=== PATIENT | female | born 1990 | race Asian ===

== ENCOUNTER 2020-04-27 05:23 | Inpatient (IN) ==
[2020-04-27] MEDS ORDERED: INFLUENZA VIRUS QUAD VACCINE 0.5 ML SYR IM ONE (06:07)
[2020-04-27] MEDS ORDERED: INFLUENZA ADMINISTRATION CHARGE ONE (06:07)
[2020-04-27] MEDS ORDERED: OXYTOCIN 30 UNITS/500 ML BAG IV PRN ×3 (06:31→19:06)
[2020-04-27] MEDS ORDERED: PENICILLIN G POTASSIUM 6 MU in DEXTROSE 5% 250 ML IV STA (06:33)
--- NOTE | 2020-04-27 06:46 | History & Physical Report ---
Date of Service April 27, 2020 Assessment & Plan (1) : 29 y/o G1 at 40 1/7 wga presenting in labor, SROM VSS Fetus cat 2, improving with resuscitation Labor - augment PRN. Forebag palpated, likely able to rupture following dose of PCN GBS+, PCN ordered Epidural PRN History of Present Illness Chief Complaint: Ctx, LOF Primary Care Provider: NO PCP 29 y/o G1 at 40 1/7 wga w/ JIM 04/26/20 by LMP 07/21/19 c/w first tri us who presents w/ water breaking ~5am and worsening contractions. Small amount of VB since SROM, +FM. PNI: GBS+ Past [employer] Hx G1 Menarche 16, regular periods No hx STIs Last pap 08/2019 reported wnl Allergies Allergy/AdvReac Type Severity Reaction Status Date / Time No Known Allergies Allergy Verified 04/21/20 11:21 Home Medications Home Medications Medication Instructions Recorded Confirmed Type prenat.vits,toñito,qem-nqyh-hvyku 1 tab PO DAILY 09/13/19 04/21/20 History docosahexaenoic acid 300 mg capsule mg PO 12/12/19 04/21/20 History Patient History Medical History Varicella Surgical History No pertinent past surgical history Family History Mother Diabetes Social History Smoking Status: Never smoker Hx Alcohol Use: No Hx Substance Use: No Preferred Language: [place] Citizen Communication Ability: Effective Staining Machine Operator Required: No Beliefs That Will Affect Care: None marital status: marital status details: Lindsay Dao (27) [phone] Current Living Situation: Spouse Current Living Situation Comment: lives with spouse, no pets Other Information That Helps Us Care for You: No Feels Safe at Home: Yes Safety Concerns: Feels Safe At This Time Physical Exam Constitutional: WD/WN, vitals as above no acute distress Respiratory: normal respiratory effort; no respiratory distress and no labored breathing Gastrointestinal (Abdomen): Percussion/Palpation: abdomen soft; abdomen nontender and no guarding Psychiatric: A+Ox3, euthymic affect Genitourinary: OB Exam Abdomen: + vertex (by BSUS and sutures) and + estimated weight (7-8lbs) Manual OB Exam: + cervical dilation (5-6, forebag palpated), + cervical effacement 70%, + station -1 and + amniotic fluid (+pooling) bloody, nitrazine positive and ferning present OB Exam Monitor Tracing: + external FHT monitor used, + external uterine monitor used (q4-5) and + category II (125/mod/+accels/intermittent variables, reassuring) Results & Data ([facility]) Vital Signs (Past 12 Hours) Vital Signs Temp Pulse Resp BP 04/27/20 05:50 98.2 F 20 04/27/20 05:49 88 122/66 Laboratory Results A+ RPR NR Hep B NR Hep C NR rubella immune GC/CT neg HIV neg GBS + COVID neg 04/17 post plac declined cfDNA/quad CF/SMA neg Coding Level of Care Code None Diagnoses Z34.90
[2020-04-27] MEDS: LACTATED RINGER'S 1,000 ML IV PRN ×4 (07:03→14:33)
[2020-04-27 07:22] LABS: Hematocrit (blood only) 38.6 % (37-47); Hemoglobin 13.5 g/dL (12.0-16.0); Mean Corpuscular Hemoglobin 31.6 pg (25-34); Mean Corpuscular Volume 90.4 fL (80-100); Mean Platelet Volume 11.7 fL (7.4-10.4); Platelet Count 203 K/uL (130-400); RDW Coefficient of Variation 12.3 % (11.5-14.5); RDW Standard Deviation 40.5 fL (36.4-46.3); Red Blood Count 4.27 M/uL (4.2-5.4); White Blood Count 19.56 K/uL (4.8-10.8)
--- NOTE | 2020-04-27 07:36 | Labor Progress Brief Note ---
Date of Service April 27, 2020 Subjective Standing at the bedside. Tolerating contractions well Assessment & Plan (1) SROM (spontaneous rupture of membranes): Admission and Anticipated Discharge Date Admission Date: April 27, 2020 assuming care of patient. pcn running. Fetus category 2 with variables but reassuring. Will allow expectant management. Fetus overall reassuirng. anticipate . Physical Exam Constitutional: WD/WN, vitals as above Psychiatric: A+Ox3, euthymic affect Genitourinary: cx--deferred toco--q2-4min efm--130s with mod variability, accels present, variable/early with contractions Results & Data ([facility]) Vital Signs (Past 12 Hours) Vital Signs Temp Pulse Resp BP 04/27/20 07:00 36.7 C 18 04/27/20 05:50 36.8 C 20 04/27/20 05:49 88 122/66 Coding Level of Care Code None Diagnoses SROM (spontaneous rupture of membranes)
[2020-04-27] MEDS ORDERED: SODIUM CHLORIDE 0.9% INJ 10 ML VIAL ONE (08:40)
[2020-04-27] MEDS ORDERED: BUPIVACAINE 0.25% 30 ML VIAL ONE (08:40)
[2020-04-27] MEDS ORDERED: ePHEDrine sulfate 50 MG/ML AMP ONE (08:40)
[2020-04-27] MEDS ORDERED: fentaNYL 2MCG/ML ROPIVACAINE 1.25MG/ML 100 ML BAG EPI ONE (08:41)
--- NOTE | 2020-04-27 08:56 | Anesthesiology Consultation ---
Date of Service April 27, 2020 Assessment & Plan Chart Review Chart Review: Acceptable Risk for Surgery, Patient NOT seen in Pre Admission Testing and Acceptable Risk for Labor Epidural Consults Requested none ASA ASA2 Proposed Anesthesia Anesthesia Type: Labor Epidural and CSE Risk / Benefits Reviewed With: PT / POA / Parent / Guardian, Accepts Plan and Informed Consent Obtained Additional Comments: covid test negative History Height/Weight Height: 5 ft 3 in Weight: 73.936 kg Allergies Allergy/AdvReac Type Severity Reaction Status Date / Time No Known Allergies Allergy Verified 04/21/20 11:21 Medications Home Medications Medication Instructions Recorded Confirmed Last Taken prenat.vits,toñito,wxy-nlzt-fqdmd 1 tab PO DAILY 09/13/19 04/21/20 Unknown docosahexaenoic acid 300 mg capsule mg PO 12/12/19 04/21/20 Unknown Active Medications Generic Name Dose Route Start Last Admin Trade Name Freq PRN Reason Stop Dose Admin Lactated Ringer's 1,000 mls @ 125 mls/hr 04/27/20 06:31 04/27/20 07:03 Lr IV 04/29/20 06:30 125 mls/hr .Q8H PRN Administration L&D Protocol Protocol NPO Date Last Intake of Fluids: 04/27/20 Time Last Intake of Fluids: 08:00 Date Last Intake of Solids: 04/26/20 Time Last Intake of Solids: 22:00 Past Medical History Medical History Varicella Exercise / Class Metabolic Activity II 4-5 Yardwork/Stairs/Walk up hill Past Family History Family History Mother Diabetes Past Surgical History Surgical History No pertinent past surgical history Past Anesthesia History No Hx of Anesthesia Complications and No Family Hx of Anesthesia Complications History of PONV No Hx of PONV and No Hx of Motion Sickness Social History Smoking Status: Never smoker Hx Alcohol Use: No Hx Substance Use: No Physical Exam Vital Signs Last Vital Signs Temp 36.7 C 04/27/20 07:00 Pulse 98 H 04/27/20 08:49 Resp 18 04/27/20 07:00 BP 152/95 H 04/27/20 08:48 Pulse Ox 92 04/27/20 08:49 Constitutional + obese ENMT Mouth: + small oral opening; no dentition abnormality Thyromental Distance: < 3.5 Finger Breadths Mallampati Class: II Neck normal visual inspection and trachea midline; neck extension not limited Respiratory normal respiratory effort Auscultation: lungs clear to auscultation bilaterally Cardiovascular Rate/Rhythm: regular rate and regular rhythm Heart Sounds: no murmur Vessels: no carotid bruit Musculoskeletal Spine: lumbar spine normal to inspection; normal cervical ROM Neurologic moves all extremities Motor/Sensory: no sensory deficit Psychiatric Orientation: alert and oriented x 3 Testing Laboratory Results 04/27/20 07:09
[2020-04-27] MEDS: fentaNYL citrate 100 MCG/2 ML VIAL ONE ×2 (09:10)
[2020-04-27] MEDS ORDERED: NALOXONE HCL 0.4 MG/1 ML VIAL/CARP IV PRN (09:21)
[2020-04-27] MEDS ORDERED: fentaNYL 2MCG/ML ROPIVACAINE 1.25MG/ML 100 ML BAG EPI PRN (09:21)
[2020-04-27] MEDS ORDERED: NALOXONE HCL 1 MG in SODIUM CHLORIDE 0.9% 1000ML 1,000 ML IV PRN (09:21)
[2020-04-27] MEDS ORDERED: PROMETHAZINE HCL 25 MG in SODIUM CHLORIDE 0.9% 50 ML IV PRN (09:21)
[2020-04-27] MEDS ORDERED: ePHEDrine sulfate 50 MG/ML AMP IV PRN (09:21)
[2020-04-27] MEDS ORDERED: ONDANSETRON INJ 2 MG/ML 2 ML VIAL IV PRN (09:21)
[2020-04-27] MEDS ORDERED: diphenhydrAMINE 50 MG/ML VIAL IV PRN (09:21)
--- NOTE | 2020-04-27 09:45 | Labor Progress Brief Note ---
Date of Service April 27, 2020 Subjective comfortable with epidural Assessment & Plan (1) SROM (spontaneous rupture of membranes): Admission and Anticipated Discharge Date Admission Date: April 27, 2020 expectant management. fetus category 1-2 and overall reassuring. anticipate . Physical Exam Constitutional: WD/WN, vitals as above Psychiatric: A+Ox3, euthymic affect Genitourinary: cx--checked before epidural by nursing 7-8 toco--q24 min efm--130s with mod variability, accels present to 150s, occas early Results & Data ([facility]) Vital Signs (Past 12 Hours) Vital Signs Temp Pulse Resp BP Pulse Ox 04/27/20 09:42 88 105/59 L 99 04/27/20 09:39 80 114/58 L 04/27/20 09:37 80 98 04/27/20 09:36 88 121/56 L 04/27/20 09:33 84 113/62 04/27/20 09:32 86 99 04/27/20 09:30 85 109/59 L 04/27/20 09:27 85 116/59 L 99 04/27/20 09:24 90 93/52 L 04/27/20 09:22 85 99 04/27/20 09:21 85 99/58 L 04/27/20 09:18 93 H 100/54 L 04/27/20 09:17 92 H 99 04/27/20 09:15 115 H 100/58 L 04/27/20 09:12 97 H 121/73 98 04/27/20 09:09 105 H 134/84 04/27/20 09:07 99 H 97 04/27/20 09:06 111 H 128/82 04/27/20 09:02 98 H 93 04/27/20 08:59 94 H 92 04/27/20 08:58 90 137/89 04/27/20 08:57 102 H 99 04/27/20 08:52 97 H 92 04/27/20 08:49 98 H 92 04/27/20 08:48 94 H 152/95 H 04/27/20 08:47 97 H 97 04/27/20 08:44 97 H 94 04/27/20 08:42 106 H 100 04/27/20 08:37 98 H 117/71 90 04/27/20 07:00 36.7 C 18 04/27/20 05:50 36.8 C 20 04/27/20 05:49 88 122/66 Coding Level of Care Code None Diagnoses SROM (spontaneous rupture of membranes)
[2020-04-27] MEDS: PENICILLIN G POTASSIUM 3 MU in DEXTROSE 5% 100 ML IV PRN ×2 (11:03→15:30)
--- NOTE | 2020-04-27 11:16 | Labor Progress Brief Note ---
Date of Service April 27, 2020 Subjective comfortable with epidural. Assessment & Plan (1) SROM (spontaneous rupture of membranes): Admission and Anticipated Discharge Date Admission Date: April 27, 2020 contractions have spaced and has not made cervical change, so plan to add pit augmentation. Fetus category 2 but reassuring. Continue to monitor closely. Physical Exam Constitutional: WD/WN, vitals as above Psychiatric: A+Ox3, euthymic affect Genitourinary: cx--8/90/-2 arom of forebag, clear toco--q 5 min efm--130s with mod variability, small accels, +scalp stim, variable/early with some contractions. Results & Data ([facility]) Vital Signs (Past 12 Hours) Vital Signs Temp Pulse Resp BP Pulse Ox Pulse Ox 04/27/20 11:07 85 96 04/27/20 11:06 84 107/60 04/27/20 11:02 86 97 04/27/20 10:57 81 96 04/27/20 10:55 81 111/61 04/27/20 10:52 80 96 04/27/20 10:47 80 96 04/27/20 10:45 80 112/60 04/27/20 10:42 88 97 04/27/20 10:37 79 96 04/27/20 10:36 76 106/55 L 04/27/20 10:32 82 96 04/27/20 10:27 78 97 04/27/20 10:26 81 107/57 L 04/27/20 10:22 85 98 04/27/20 10:17 76 97 04/27/20 10:15 82 109/58 L 04/27/20 10:12 78 97 04/27/20 10:08 86 106/56 L 04/27/20 10:07 89 98 04/27/20 10:02 78 97 04/27/20 10:00 18 04/27/20 09:57 80 97 04/27/20 09:56 76 112/56 L 04/27/20 09:52 79 116/59 L 98 04/27/20 09:47 79 98 04/27/20 09:45 78 117/58 L 04/27/20 09:42 88 105/59 L 99 04/27/20 09:39 80 114/58 L 04/27/20 09:37 80 98 04/27/20 09:36 88 121/56 L 04/27/20 09:33 84 113/62 04/27/20 09:32 86 99 04/27/20 09:30 36.8 C 85 18 109/59 L 04/27/20 09:27 85 116/59 L 99 04/27/20 09:24 90 93/52 L 04/27/20 09:22 85 99 04/27/20 09:21 85 99/58 L 04/27/20 09:18 93 H 100/54 L 04/27/20 09:17 92 H 99 04/27/20 09:15 115 H 100/58 L 04/27/20 09:12 97 H 121/73 98 04/27/20 09:09 105 H 134/84 04/27/20 09:07 99 H 97 04/27/20 09:06 111 H 128/82 04/27/20 09:02 98 H 93 04/27/20 09:00 99 04/27/20 08:59 94 H 92 04/27/20 08:58 90 137/89 04/27/20 08:57 102 H 99 04/27/20 08:52 97 H 92 04/27/20 08:49 98 H 92 04/27/20 08:48 94 H 152/95 H 04/27/20 08:47 97 H 97 04/27/20 08:44 97 H 94 04/27/20 08:42 106 H 100 04/27/20 08:37 98 H 117/71 90 04/27/20 07:00 36.7 C 18 04/27/20 05:50 36.8 C 20 04/27/20 05:49 88 122/66 Coding Level of Care Code None Diagnoses SROM (spontaneous rupture of membranes)
--- NOTE | 2020-04-27 12:39 | Labor Progress Brief Note ---
Date of Service April 27, 2020 Subjective comfortable with epidural. Assessment & Plan (1) SROM (spontaneous rupture of membranes): Admission and Anticipated Discharge Date Admission Date: April 27, 2020 fetus category two but reassuring with mod variability, and scalp stim. occasional spon accels. Will allow to labor down and then push. Hold on pit for now. Did breach the discussion of possible c/s if baby does not tolerate pushing. Still high. They express understanding. Physical Exam Constitutional: WD/WN, vitals as above Psychiatric: A+Ox3, euthymic affect Genitourinary: cx--c/c/0-+1 toco--q3-6min efm--125 with mod variability, accels present, +scalp stim, variables with contractions to 90s Results & Data ([facility]) Vital Signs (Past 12 Hours) Vital Signs Temp Pulse Resp BP Pulse Ox Pulse Ox 04/27/20 12:32 95 H 98 04/27/20 12:27 88 98 04/27/20 12:26 94 H 108/65 04/27/20 12:22 93 H 99 04/27/20 12:17 91 H 114/64 96 04/27/20 12:12 96 H 97 04/27/20 12:07 86 96 04/27/20 12:06 80 110/71 04/27/20 12:02 86 96 04/27/20 11:57 83 95 04/27/20 11:55 78 115/68 04/27/20 11:52 83 96 04/27/20 11:47 79 96 04/27/20 11:46 82 120/69 04/27/20 11:42 83 97 04/27/20 11:37 91 H 97 04/27/20 11:35 87 127/73 04/27/20 11:32 87 97 04/27/20 11:30 36.8 C 18 04/27/20 11:28 87 94 04/27/20 11:27 97 H 100 04/27/20 11:26 97 H 122/66 04/27/20 11:22 82 97 04/27/20 11:21 84 94 04/27/20 11:17 94 H 98 04/27/20 11:12 100 H 98 04/27/20 11:07 85 96 04/27/20 11:06 84 107/60 04/27/20 11:02 86 97 04/27/20 10:57 81 96 04/27/20 10:55 81 111/61 04/27/20 10:52 80 96 04/27/20 10:47 80 96 04/27/20 10:45 80 112/60 04/27/20 10:42 88 97 04/27/20 10:37 79 96 04/27/20 10:36 76 106/55 L 04/27/20 10:32 82 96 04/27/20 10:27 78 97 04/27/20 10:26 81 107/57 L 04/27/20 10:22 85 98 04/27/20 10:17 76 97 04/27/20 10:15 82 109/58 L 04/27/20 10:12 78 97 04/27/20 10:08 86 106/56 L 04/27/20 10:07 89 98 04/27/20 10:02 78 97 04/27/20 10:00 18 04/27/20 09:57 80 97 04/27/20 09:56 76 112/56 L 04/27/20 09:52 79 116/59 L 98 04/27/20 09:47 79 98 04/27/20 09:45 78 117/58 L 04/27/20 09:42 88 105/59 L 99 04/27/20 09:39 80 114/58 L 04/27/20 09:37 80 98 04/27/20 09:36 88 121/56 L 04/27/20 09:33 84 113/62 04/27/20 09:32 86 99 04/27/20 09:30 36.8 C 85 18 109/59 L 04/27/20 09:27 85 116/59 L 99 04/27/20 09:24 90 93/52 L 04/27/20 09:22 85 99 04/27/20 09:21 85 99/58 L 04/27/20 09:18 93 H 100/54 L 04/27/20 09:17 92 H 99 04/27/20 09:15 115 H 100/58 L 04/27/20 09:12 97 H 121/73 98 04/27/20 09:09 105 H 134/84 04/27/20 09:07 99 H 97 04/27/20 09:06 111 H 128/82 10/26/20 09:02 98 H 93 04/27/20 09:00 99 04/27/20 08:59 94 H 92 04/27/20 08:58 90 137/89 04/27/20 08:57 102 H 99 04/27/20 08:52 97 H 92 04/27/20 08:49 98 H 92 04/27/20 08:48 94 H 152/95 H 04/27/20 08:47 97 H 97 04/27/20 08:44 97 H 94 04/27/20 08:42 106 H 100 04/27/20 08:37 98 H 117/71 90 04/27/20 07:00 36.7 C 18 04/27/20 05:50 36.8 C 20 04/27/20 05:49 88 122/66 Coding Level of Care Code None Diagnoses SROM (spontaneous rupture of membranes)
--- NOTE | 2020-04-27 14:07 | Labor Progress Brief Note ---
Date of Service April 27, 2020 Subjective comfortable with epidural. Assessment & Plan (1) SROM (spontaneous rupture of membranes): Admission and Anticipated Discharge Date Admission Date: April 27, 2020 Will begin pushing as has labored down for 1.5 hours. Baby still high. Fetus overall reassuring category 2. Will monitor closely. Physical Exam Constitutional: WD/WN, vitals as above Psychiatric: A+Ox3, euthymic affect Genitourinary: cx--c/c/0-+1 toco--q4-6miin efm--125 with mod variability, small accels, variable/early with contractions Results & Data ([facility]) Vital Signs (Past 12 Hours) Vital Signs Temp Pulse Resp BP Pulse Ox Pulse Ox 04/27/20 14:02 98 H 98 04/27/20 13:57 95 H 123/81 98 04/27/20 13:52 98 H 98 04/27/20 13:47 97 H 98 04/27/20 13:46 99 H 141/87 H 04/27/20 13:42 96 H 97 04/27/20 13:37 93 H 141/85 H 97 04/27/20 13:32 98 H 98 04/27/20 13:30 18 04/27/20 13:28 98 H 140/89 04/27/20 13:27 99 H 98 04/27/20 13:22 96 H 98 04/27/20 13:17 97 H 98 04/27/20 13:16 90 147/70 H 04/27/20 13:12 96 H 97 04/27/20 13:07 105 H 95 04/27/20 13:06 93 H 154/70 H 04/27/20 13:02 98 H 99 04/27/20 12:57 96 H 111/57 L 98 04/27/20 12:52 101 H 97 04/27/20 12:47 98 H 117/69 97 04/27/20 12:42 99 H 97 04/27/20 12:37 104 H 127/73 98 04/27/20 12:32 95 H 98 04/27/20 12:30 36.7 C 18 04/27/20 12:27 88 98 04/27/20 12:26 94 H 108/65 04/27/20 12:22 93 H 99 04/27/20 12:17 91 H 114/64 96 04/27/20 12:12 96 H 97 04/27/20 12:07 86 96 04/27/20 12:06 80 110/71 04/27/20 12:02 86 96 04/27/20 11:57 83 95 04/27/20 11:55 78 115/68 04/27/20 11:52 83 96 04/27/20 11:47 79 96 04/27/20 11:46 82 120/69 04/27/20 11:42 83 97 04/27/20 11:37 91 H 97 04/27/20 11:35 87 127/73 04/27/20 11:32 87 97 04/27/20 11:30 36.8 C 18 04/27/20 11:28 87 94 04/27/20 11:27 97 H 100 04/27/20 11:26 97 H 122/66 04/27/20 11:22 82 97 04/27/20 11:21 84 94 04/27/20 11:17 94 H 98 04/27/20 11:12 100 H 98 04/27/20 11:07 85 96 04/27/20 11:06 84 107/60 04/27/20 11:02 86 97 04/27/20 10:57 81 96 04/27/20 10:55 81 111/61 04/27/20 10:52 80 96 04/27/20 10:47 80 96 04/27/20 10:45 80 112/60 04/27/20 10:42 88 97 04/27/20 10:37 79 96 04/27/20 10:36 76 106/55 L 04/27/20 10:32 82 96 04/27/20 10:27 78 97 04/27/20 10:26 81 107/57 L 04/27/20 10:22 85 98 04/27/20 10:17 76 97 04/27/20 10:15 82 109/58 L 04/27/20 10:12 78 97 04/27/20 10:08 86 106/56 L 04/27/20 10:07 89 98 04/27/20 10:02 78 97 04/27/20 10:00 18 04/27/20 09:57 80 97 04/27/20 09:56 76 112/56 L 04/27/20 09:52 79 116/59 L 98 04/27/20 09:47 79 98 04/27/20 09:45 78 117/58 L 04/27/20 09:42 88 105/59 L 99 04/27/20 09:39 80 114/58 L 04/27/20 09:37 80 98 04/27/20 09:36 88 121/56 L 04/27/20 09:33 84 113/62 04/27/20 09:32 86 99 04/27/20 09:30 36.8 C 85 18 109/59 L 04/27/20 09:27 85 116/59 L 99 04/27/20 09:24 90 93/52 L 04/27/20 09:22 85 99 04/27/20 09:21 85 99/58 L 04/27/20 09:18 93 H 100/54 L 04/27/20 09:17 92 H 99 04/27/20 09:15 115 H 100/58 L 04/27/20 09:12 97 H 121/73 98 04/27/20 09:09 105 H 134/84 04/27/20 09:07 99 H 97 04/27/20 09:06 111 H 128/82 04/27/20 09:02 98 H 93 04/27/20 09:00 99 04/27/20 08:59 94 H 92 04/27/20 08:58 90 137/89 04/27/20 08:57 102 H 99 04/27/20 08:52 97 H 92 04/27/20 08:49 98 H 92 04/27/20 08:48 94 H 152/95 H 04/27/20 08:47 97 H 97 04/27/20 08:44 97 H 94 04/27/20 08:42 106 H 100 04/27/20 08:37 98 H 117/71 90 04/27/20 07:00 36.7 C 18 04/27/20 05:50 36.8 C 20 04/27/20 05:49 88 122/66 Coding Level of Care Code None Diagnoses SROM (spontaneous rupture of membranes)
[2020-04-27] MEDS ORDERED: TERBUTALINE SULFATE 1 MG/ML VIAL ONE (14:11)
--- NOTE | 2020-04-27 15:25 | Labor Progress Brief Note ---
Date of Service April 27, 2020 Subjective pushing with good effort Assessment & Plan (1) SROM (spontaneous rupture of membranes): Admission and Anticipated Discharge Date Admission Date: April 27, 2020 continue second stage. Fetus overall tolerating well. Still concerned about small pelvis but has moved it a little. Physical Exam Constitutional: WD/WN, vitals as above Psychiatric: A+Ox3, euthymic affect Genitourinary: +1 station, has moved a little bit, pushing now for 50 min efm--130s with mod variability, small accels, variables with pushing Results & Data ([facility]) Vital Signs (Past 12 Hours) Vital Signs Temp Pulse Resp BP Pulse Ox Pulse Ox 04/27/20 15:22 107 H 94 04/27/20 15:17 104 H 99 04/27/20 15:12 98 H 100 04/27/20 15:07 100 H 114/51 L 100 04/27/20 15:02 96 H 100 04/27/20 14:57 95 H 117/64 100 04/27/20 14:52 102 H 100 04/27/20 14:47 131 H 100 04/27/20 14:45 100 H 105/56 L 04/27/20 14:42 94 H 100 04/27/20 14:37 109 H 100 04/27/20 14:35 98 H 113/57 L 04/27/20 14:32 99 H 100 04/27/20 14:27 101 H 100 04/27/20 14:25 107 H 122/64 04/27/20 14:22 96 H 100 04/27/20 14:17 99 H 100 04/27/20 14:16 106 H 137/58 L 04/27/20 14:12 112 H 99 04/27/20 14:07 102 H 99 04/27/20 14:06 111 H 146/84 H 04/27/20 14:02 98 H 98 04/27/20 13:57 95 H 123/81 98 04/27/20 13:52 98 H 98 04/27/20 13:47 97 H 98 04/27/20 13:46 99 H 141/87 H 04/27/20 13:42 96 H 97 04/27/20 13:37 93 H 141/85 H 97 04/27/20 13:32 98 H 98 04/27/20 13:30 18 04/27/20 13:28 98 H 140/89 04/27/20 13:27 99 H 98 04/27/20 13:22 96 H 98 04/27/20 13:17 97 H 98 04/27/20 13:16 90 147/70 H 04/27/20 13:12 96 H 97 04/27/20 13:07 105 H 95 04/27/20 13:06 93 H 154/70 H 04/27/20 13:02 98 H 99 04/27/20 12:57 96 H 111/57 L 98 04/27/20 12:52 101 H 97 04/27/20 12:47 98 H 117/69 97 04/27/20 12:42 99 H 97 04/27/20 12:37 104 H 127/73 98 04/27/20 12:32 95 H 98 04/27/20 12:30 36.7 C 18 04/27/20 12:27 88 98 04/27/20 12:26 94 H 108/65 04/27/20 12:22 93 H 99 04/27/20 12:17 91 H 114/64 96 04/27/20 12:12 96 H 97 04/27/20 12:07 86 96 04/27/20 12:06 80 110/71 04/27/20 12:02 86 96 04/27/20 11:57 83 95 04/27/20 11:55 78 115/68 04/27/20 11:52 83 96 04/27/20 11:47 79 96 04/27/20 11:46 82 120/69 04/27/20 11:42 83 97 04/27/20 11:37 91 H 97 04/27/20 11:35 87 127/73 04/27/20 11:32 87 97 04/27/20 11:30 36.8 C 18 04/27/20 11:28 87 94 04/27/20 11:27 97 H 100 04/27/20 11:26 97 H 122/66 04/27/20 11:22 82 97 04/27/20 11:21 84 94 04/27/20 11:17 94 H 98 04/27/20 11:12 100 H 98 04/27/20 11:07 85 96 04/27/20 11:06 84 107/60 04/27/20 11:02 86 97 04/27/20 10:57 81 96 04/27/20 10:55 81 111/61 04/27/20 10:52 80 96 04/27/20 10:47 80 96 04/27/20 10:45 80 112/60 04/27/20 10:42 88 97 04/27/20 10:37 79 96 04/27/20 10:36 76 106/55 L 04/27/20 10:32 82 96 04/27/20 10:27 78 97 04/27/20 10:26 81 107/57 L 04/27/20 10:22 85 98 04/27/20 10:17 76 97 04/27/20 10:15 82 109/58 L 04/27/20 10:12 78 97 04/27/20 10:08 86 106/56 L 04/27/20 10:07 89 98 04/27/20 10:02 78 97 04/27/20 10:00 18 04/27/20 09:57 80 97 04/27/20 09:56 76 112/56 L 04/27/20 09:52 79 116/59 L 98 04/27/20 09:47 79 98 04/27/20 09:45 78 117/58 L 04/27/20 09:42 88 105/59 L 99 04/27/20 09:39 80 114/58 L 04/27/20 09:37 80 98 04/27/20 09:36 88 121/56 L 04/27/20 09:33 84 113/62 04/27/20 09:32 86 99 04/27/20 09:30 36.8 C 85 18 109/59 L 04/27/20 09:27 85 116/59 L 99 04/27/20 09:24 90 93/52 L 04/27/20 09:22 85 99 04/27/20 09:21 85 99/58 L 04/27/20 09:18 93 H 100/54 L 04/27/20 09:17 92 H 99 04/27/20 09:15 115 H 100/58 L 04/27/20 09:12 97 H 121/73 98 04/27/20 09:09 105 H 134/84 04/27/20 09:07 99 H 97 04/27/20 09:06 111 H 128/82 04/27/20 09:02 98 H 93 04/27/20 09:00 99 04/27/20 08:59 94 H 92 04/27/20 08:58 90 137/89 04/27/20 08:57 102 H 99 04/27/20 08:52 97 H 92 04/27/20 08:49 98 H 92 04/27/20 08:48 94 H 152/95 H 04/27/20 08:47 97 H 97 04/27/20 08:44 97 H 94 04/27/20 08:42 106 H 100 04/27/20 08:37 98 H 117/71 90 04/27/20 07:00 36.7 C 18 04/27/20 05:50 36.8 C 20 04/27/20 05:49 88 122/66 Coding Level of Care Code None Diagnoses SROM (spontaneous rupture of membranes)
--- NOTE | 2020-04-27 16:19 | Labor Progress Brief Note ---
Date of Service April 27, 2020 Subjective pushing with good effort Assessment & Plan (1) SROM (spontaneous rupture of membranes): Admission and Anticipated Discharge Date Admission Date: April 27, 2020 continue second stage . Good progress. Anticipate vaginal delivery. Fetus reassuring category two. Physical Exam Constitutional: WD/WN, vitals as above Psychiatric: A+Ox3, euthymic affect Genitourinary: +2 station efm--140s with mod variability, variables with pushing. toco--q4-6min Results & Data ([facility]) Vital Signs (Past 12 Hours) Vital Signs Temp Pulse Resp BP Pulse Ox Pulse Ox 04/27/20 16:12 118 H 99 04/27/20 16:07 132 H 97 04/27/20 16:06 115 H 134/77 04/27/20 16:02 153 H 97 04/27/20 16:00 111 H 18 93 04/27/20 15:57 133 H 98 04/27/20 15:56 99 H 134/76 04/27/20 15:54 108 H 93 04/27/20 15:52 145 H 97 04/27/20 15:47 100 H 97 04/27/20 15:46 102 H 124/70 04/27/20 15:42 103 H 99 04/27/20 15:37 120 H 94 04/27/20 15:35 100 H 87 L 04/27/20 15:32 37.3 C 101 H 18 100 04/27/20 15:29 119 H 81 L 04/27/20 15:27 98 H 100 04/27/20 15:22 107 H 84 L 04/27/20 15:17 104 H 99 04/27/20 15:12 98 H 100 04/27/20 15:07 100 H 114/51 L 100 04/27/20 15:02 96 H 100 04/27/20 14:57 95 H 117/64 100 04/27/20 14:52 102 H 100 04/27/20 14:47 131 H 100 04/27/20 14:45 100 H 105/56 L 04/27/20 14:42 94 H 100 04/27/20 14:37 109 H 100 04/27/20 14:35 98 H 113/57 L 04/27/20 14:32 99 H 100 04/27/20 14:27 101 H 100 04/27/20 14:25 107 H 122/64 04/27/20 14:22 96 H 100 04/27/20 14:17 99 H 100 04/27/20 14:16 106 H 137/58 L 04/27/20 14:12 112 H 99 04/27/20 14:07 102 H 99 04/27/20 14:06 111 H 146/84 H 04/27/20 14:02 98 H 98 04/27/20 13:57 95 H 123/81 98 04/27/20 13:52 98 H 98 04/27/20 13:47 97 H 98 04/27/20 13:46 99 H 141/87 H 04/27/20 13:42 96 H 97 04/27/20 13:37 93 H 141/85 H 97 04/27/20 13:32 98 H 98 04/27/20 13:30 18 04/27/20 13:28 98 H 140/89 04/27/20 13:27 99 H 98 04/27/20 13:22 96 H 98 04/27/20 13:17 97 H 98 04/27/20 13:16 90 147/70 H 04/27/20 13:12 96 H 97 04/27/20 13:07 105 H 95 04/27/20 13:06 93 H 154/70 H 04/27/20 13:02 98 H 99 04/27/20 12:57 96 H 111/57 L 98 04/27/20 12:52 101 H 97 04/27/20 12:47 98 H 117/69 97 04/27/20 12:42 99 H 97 04/27/20 12:37 104 H 127/73 98 04/27/20 12:32 95 H 98 04/27/20 12:30 36.7 C 18 04/27/20 12:27 88 98 04/27/20 12:26 94 H 108/65 04/27/20 12:22 93 H 99 04/27/20 12:17 91 H 114/64 96 04/27/20 12:12 96 H 97 04/27/20 12:07 86 96 04/27/20 12:06 80 110/71 04/27/20 12:02 86 96 04/27/20 11:57 83 95 04/27/20 11:55 78 115/68 04/27/20 11:52 83 96 04/27/20 11:47 79 96 04/27/20 11:46 82 120/69 04/27/20 11:42 83 97 04/27/20 11:37 91 H 97 04/27/20 11:35 87 127/73 04/27/20 11:32 87 97 04/27/20 11:30 36.8 C 18 04/27/20 11:28 87 94 04/27/20 11:27 97 H 100 04/27/20 11:26 97 H 122/66 04/27/20 11:22 82 97 04/27/20 11:21 84 94 04/27/20 11:17 94 H 98 04/27/20 11:12 100 H 98 04/27/20 11:07 85 96 04/27/20 11:06 84 107/60 04/27/20 11:02 86 97 04/27/20 10:57 81 96 04/27/20 10:55 81 111/61 04/27/20 10:52 80 96 04/27/20 10:47 80 96 04/27/20 10:45 80 112/60 04/27/20 10:42 88 97 04/27/20 10:37 79 96 04/27/20 10:36 76 106/55 L 04/27/20 10:32 82 96 04/27/20 10:27 78 97 04/27/20 10:26 81 107/57 L 04/27/20 10:22 85 98 04/27/20 10:17 76 97 04/27/20 10:15 82 109/58 L 04/27/20 10:12 78 97 04/27/20 10:08 86 106/56 L 04/27/20 10:07 89 98 04/27/20 10:02 78 97 04/27/20 10:00 18 04/27/20 09:57 80 97 04/27/20 09:56 76 112/56 L 04/27/20 09:52 79 116/59 L 98 04/27/20 09:47 79 98 04/27/20 09:45 78 117/58 L 04/27/20 09:42 88 105/59 L 99 04/27/20 09:39 80 114/58 L 04/27/20 09:37 80 98 04/27/20 09:36 88 121/56 L 04/27/20 09:33 84 113/62 04/27/20 09:32 86 99 04/27/20 09:30 36.8 C 85 18 109/59 L 04/27/20 09:27 85 116/59 L 99 04/27/20 09:24 90 93/52 L 04/27/20 09:22 85 99 04/27/20 09:21 85 99/58 L 04/27/20 09:18 93 H 100/54 L 04/27/20 09:17 92 H 99 04/27/20 09:15 115 H 100/58 L 04/27/20 09:12 97 H 121/73 98 04/27/20 09:09 105 H 134/84 04/27/20 09:07 99 H 97 04/27/20 09:06 111 H 128/82 04/27/20 09:02 98 H 93 04/27/20 09:00 99 04/27/20 08:59 94 H 92 04/27/20 08:58 90 137/89 04/27/20 08:57 102 H 99 04/27/20 08:52 97 H 92 04/27/20 08:49 98 H 92 04/27/20 08:48 94 H 152/95 H 04/27/20 08:47 97 H 97 04/27/20 08:44 97 H 94 04/27/20 08:42 106 H 100 04/27/20 08:37 98 H 117/71 90 04/27/20 07:00 36.7 C 18 04/27/20 05:50 36.8 C 20 04/27/20 05:49 88 122/66 Coding Level of Care Code None Diagnoses SROM (spontaneous rupture of membranes)
[2020-04-27] MEDS ORDERED: ERYTHROMYCIN OP OINT 1 GM PKT ONE (17:18)
[2020-04-27] MEDS ORDERED: ACETAMINOPHEN 325 MG TAB PO PRN (17:50)
[2020-04-27] MEDS ORDERED: IBUPROFEN 600 MG TAB PO PRN (17:50)
[2020-04-27] MEDS ORDERED: oxyCODONE/ACETAMINOPHEN 5mg/325mg TAB PO PRN (17:50)
--- NOTE | 2020-04-27 18:00 | Delivery Summary ---
Vaginal Delivery Summary Date of Service April 27, 2020 Vaginal Delivery Summary Pre-operative Diagnosis: at 40 weeks srom Post-operative Diagnosis: same maternal exhaustion and discomfort at the outlet Procedure: epidural vavd third degree laceration with repair bilateral clitoral lacerations with repair EBL: 475cc Anesthesia: epidural Procedure: The patient pushed for about 2.5 hours to bring the vertex to . Because of pain, the patient was not able to push the vertex through the introitus. She asked for assistance. An outlet vacuum was placed at +5 station with two pop offs. The patient was then able to deliver with a Ritgen's maneuver a viable male infant in kelly position. Their was no nuchal cord. The anterior shoulder was then immedately delivered and the rest of the infant was then delivered without difficulty. The baby was placed on the maternal abdomen for drying and attention. The nose and mouth were bulb and the cord was clamped and cut so the baby could be taken to the warmer. Cord blood and segment obtained. Placenta delivered spontaneous, intact with a three vessel cord. Cervix/sulci/rectum were intact. A third degree perineal laceration was repaired in the normal standard fashion. A few interrupted stitches of 4-0 vicryl were needed to reapproximate the anal verge and then 3, figure of 8 sutures of 3-0 vicryl were used to reapproximate the sphincter. Multiple rectal exams were performed and no stitches were noted in the rectum. The resulting vaginal and perineal laceration were repaired. Bilateral labial lacerations were repaired with 4-0 vicryl. Hemostasis obtained with dilute pitocin and fundal massage. Apgars were 8/9. Mother and baby doing well at the end of the delivery[place] [facility] [place] Vaginal Delivery Codes: 12563 global code for the antepartum, delivery, and post-
--- NOTE | 2020-04-27 18:44 | Anesthesia Procedure Note ---
Date of Service April 27, 2020 Anesthesia Post Epidural Note Vital Signs Vital Signs: Temp Pulse Resp BP Pulse Ox 37.3 C 100 H 18 109/63 96 04/27/20 15:32 04/27/20 18:35 04/27/20 17:00 04/27/20 18:35 04/27/20 17:47 Pain Intensity Abdomen: Pain Intensity: 0 Notes Mental Status: alert / awake / arousable Nausea / Vomiting: adequately controlled Pain: adequately controlled Airway Patency, RR, SpO2: stable & adequate BP & HR: stable & adequate Hydration State: stable & adequate Neuraxial Anesthesia: was administered and sensory block is resolving Anesthetic Complications: no major complications apparent Epidural: Removed without complications and With tip intact
[2020-04-27] MEDS ORDERED: DIPHTHERIA/TETANUS/PERTUSSIS 0.5 ML SYR/VIAL IM ONE (19:06)
[2020-04-27] MEDS ORDERED: HYDROCORTISONE ACETATE 25 MG SUPP PR PRN (19:06)
[2020-04-27] MEDS ORDERED: BENZOCAINE 20% AER SPR 82.5 GM CAN EXT PRN (19:06)
[2020-04-27] MEDS ORDERED: SUPERCREAM 0.870% 15 GM JAR EXT PRN (19:06)
[2020-04-27] MEDS: ceFAZolin 1000MG 1,000 MG/7.5 ML SYR IV SCH (19:07)
[2020-04-27] MEDS: DOCUSATE SODIUM 100 MG CAP PO SCH (20:37)
[2020-04-28] MEDS: ceFAZolin 1000MG 1,000 MG/7.5 ML SYR IV SCH ×3 (03:28→19:01)
--- NOTE | 2020-04-28 05:59 | Obstetrical Progress Note ---
Date of Service <Gibran Johnson MD - Last Filed: 04/28/20 06:19> April 28, 2020 Assessment & Plan <Gibran Johnson MD - Last Filed: 04/28/20 06:19> (1) : - PNL: Rh pos, RI, GBS pos (received intrapartum PCN G), COVID [neg] - Feels well today. Eating well, voiding well, ambulating well - Pain well controlled with ibuprofen 600mg Q4H PRN - Routine care -- OOB, ambulation, diet progression as tolerated - After discharge will have 6 week follow-up with Dr. Gleason Day #:: 1 Subjective <Gibran Johnson MD - Last Filed: 04/28/20 06:19> Lucia is a 29 y/o female who is PPD #1 following VAVD at 40 1/7 weeks. She reports feeling well overall this morning. Light abdominal cramping and 2/10 pain well managed on analgesics. Voiding well. Tolerating meals overnight without difficulty. Patient has been able to ambulate some. Has persistent lochia with some improvement this morning. Currently . Review of Systems Denies fever or chills. Denies shortness of breath or cough. Denies chest pain. Denies breast pain. Denies dysuria. Denies leg pain or leg swelling. Denies headache or changes in vision. Physical Exam <Gibran Johnson MD - Last Filed: 04/28/20 06:19> General: Alert, oriented. No acute distress. Cardiac: Regular rate and rhythm. No murmurs. Respiratory: Clear to auscultation bilaterally a/p, no wheezes/rales/rhonchi. No increased work of breathing. Symmetrical chest rise. No respiratory distress. Abdomen: Soft, nontender, nondistended. Bowel sounds present. Uterus: Uterine fundus firm, palpable 1 cm below umbilicus. Lower Extremities: No lower extremity edema or swelling. No deep calf pain. Liz's negative bilaterally. Results & Data ([facility]) <Gibran Johnson MD - Last Filed: 04/28/20 06:19> Vital Signs (Past 12 Hours) Vital Signs Temp Pulse Pulse Resp BP BP 04/28/20 03:30 37.1 C 94 H 16 97/61 L 04/28/20 00:00 37.2 C 97 H 18 112/69 04/27/20 20:10 36.8 C 102 H 16 109/67 04/27/20 19:53 37.5 C 18 04/27/20 19:46 108 H 106/48 L 04/27/20 19:25 108 H 121/62 04/27/20 19:19 110 H 122/60 04/27/20 19:16 114 H 100/56 L 04/27/20 19:15 18 04/27/20 19:06 106 H 110/59 L 04/27/20 18:55 109 H 111/66 04/27/20 18:45 105 H 110/61 04/27/20 18:35 100 H 109/63 04/27/20 18:25 111 H 116/68 04/27/20 18:16 107 H 117/62 04/27/20 18:06 108 H 124/60 <Cindi Gleason MD, FACOG - Last Filed: 04/28/20 06:53> Co-Signing Physician Notes Resident Physician Supervision Note: I interviewed and examined the patient. Discussed with Dr. Camarillo and agree with findings and plan as documented in the note. Any exceptions or clarifications are listed here: Doing well, ppd 1. Routine care. Documented By: Cindi Gleason MD, FACOG Resident Activity Tracking <Gibran Johnson MD - Last Filed: 04/28/20 06:19> Resident Involvement: Resident Care Provided Care Provided: OB Delivery
[2020-04-28 06:43] LABS: Hematocrit (blood only) 29.9 % (37-47); Hemoglobin 10.3 g/dL (12.0-16.0)
[2020-04-28] MEDS: DOCUSATE SODIUM 100 MG CAP PO SCH ×2 (07:49→20:48)
[2020-04-28] MEDS: PRENATAL VITAMIN 1 TAB PO SCH (07:49)
[2020-04-28 12:05] VITALS: O2SAT 96
--- NOTE | 2020-04-29 06:10 | Obstetrical Progress Note ---
Date of Service <Gibran Johnson MD - Last Filed: 04/29/20 07:16> April 29, 2020 Assessment & Plan <Gibran Johnson MD - Last Filed: 04/29/20 07:16> (1) : - PNL: Rh pos, RI, GBS pos (Received intrapartum PCN), COVID neg - Feels well today. Eating well, voiding well, ambulating well - Pain well controlled with ibuprofen 600mg Q4H PRN - Routine care -- OOB, ambulation, diet progression as tolerated - After discharge will have 6 week follow-up with Dr. Gleason - Plan for discharge today Day #:: 2 Subjective <Gibran Johnson MD - Last Filed: 04/29/20 07:16> Lucia is a 29 y/o female who is PPD #2 following at 40 1/7 weeks. She reports feeling well overall this morning. Light abdominal cramping and 5/10 pain well managed on analgesics. Voiding well. Tolerating meals overnight without difficulty. Patient has been able to ambulate some. Has persistent lochia with some improvement this morning. Currently . Review of Systems Denies fever or chills. Denies shortness of breath or cough. Denies chest pain. Denies breast pain. Denies dysuria. Denies leg pain or leg swelling. Denies headache or changes in vision. Physical Exam <Gibran Johnson MD - Last Filed: 04/29/20 07:16> General: Alert, oriented. No acute distress. Cardiac: Regular rate and rhythm. No murmurs. Respiratory: Clear to auscultation bilaterally a/p, no wheezes/rales/rhonchi. No increased work of breathing. Symmetrical chest rise. No respiratory distress. Abdomen: Soft, nontender, nondistended. Bowel sounds present. Uterus: Uterine fundus firm, palpable 2 cm below umbilicus. Lower Extremities: No lower extremity edema or swelling. No deep calf pain. Liz's negative bilaterally. Results & Data ([facility]) <Gibran Johnson MD - Last Filed: 04/29/20 07:16> Vital Signs (Past 12 Hours) Vital Signs Temp Pulse Resp BP Pulse Ox 10/27/20 23:45 37.0 C 93 H 17 115/73 96 <Alessandro Porter MD - Last Filed: 04/29/20 08:41> Co-Signing Physician Notes Patient evaluated and agree with the above findings and plan. Stable for discharge Resident Activity Tracking <Gibran Johnson MD - Last Filed: 04/29/20 07:16> Resident Involvement: Resident Care Provided Care Provided: OB Delivery
[2020-04-29] MEDS: PRENATAL VITAMIN 1 TAB PO SCH (07:43)
[2020-04-29] MEDS: DOCUSATE SODIUM 100 MG CAP PO SCH (07:43)
[2020-04-29 09:45] VITALS: BP 110/71; TEMP 97.7
[2020-04-29 10:22] VITALS: PULSE 80
--- NOTE | 2020-05-02 00:43 | Discharge Summary (DS) ---
ADMISSION DIAGNOSES: 1. Intrauterine at 40 and 1/7th weeks. 2. Spontaneous rupture of membranes. DISCHARGE DIAGNOSES: 1. Intrauterine at 40 and 1/7th weeks. 2. Spontaneous rupture of membranes. 3. Vacuum-assisted vaginal delivery at outlet secondary to pain. 4. Third-degree perineal laceration with repair. PROCEDURES: 1. Epidural anesthesia. 2. Outlet vacuum-assisted vaginal delivery. 3. Third-degree perineal laceration with repair. HISTORY OF PRESENT ILLNESS: The patient is a 29-year-old female G1, P0 at 40 and 1/7th weeks by JIM of 04/26/2020 consistent with last menstrual period and first trimester ultrasound, who presents with water breaking at 5:00 a.m. and worsening contractions. She has had a small amount of vaginal bleeding since trauma, good movement. Her GBS is positive. This is her first . For the rest of the patient's detailed history and physical, see her detailed history and physical. ASSESSMENT: This is a , G1, P0 at 40 and 1/7 weeks. She presents with gross SRoM. Her cervix was 5-6 cm dilated, 70%, -1 station. Fetus was category 2 secondary to variable decelerations. HOSPITAL COURSE: The patient was admitted. She eventually underwent an epidural anesthetic. She had penicillin for GBS positive status. She had a fetus that was category 2, but variables and reassuring scalp stimulation and variability. Expectant management was initiated. She then underwent an epidural anesthetic and her cervix was checked before epidural placement by nursing, was 7-8 cm dilated. She progressed very slowly. She was checked and a forebag was ruptured for clear fluid. At that time by my exam, she was 8, 90%, and -2. She progressed to complete-complete and 0 to +1 station. heart tones at that time continued to be category 2 with accelerations present, positive scalp stim, moderate variability, and variables with contractions to 90s. She was allowed to labor down for approximately an hour and a half, which did not significantly change the station and then she began second stage. She pushed with good effort and the fetus tolerated pushing well. She pushed for approximately 2-1/2 hours and brought the vertex to , but because of pain she was not able to push the vertex through the introitus. She asked for an assistance. Outlet vacuum was placed at +5 stations. Pressure was never greater than 50 cm of water. There were 2 pop-offs and the patient was then able to deliver with Ritgen's maneuver a viable male infant in SPENCER position. There was no nuchal cord. There was no difficulty delivering the shoulders. The baby was vigorous and placed on the maternal abdomen. The placenta was delivered spontaneously, was tacked with a 3-vessel cord. On evaluation of the perineum, a third-degree perineal laceration was repaired. A few interrupted stitches of 4-0 Vicryl were needed to reapproximate the anal verge. Then three [id number] sutures of 2-0 Vicryl were used to reapproximate the sphincter. Multiple rectal exams were performed and no stitches were noted in the rectum and the rectum and anal verge were completely approximated. The resulting vaginal and perineal lacerations were repaired. Bilateral labial lacerations were repaired with 4-0 Vicryl. Estimated blood loss was 475 mL. The patient's postoperative course was uncomplicated. She tolerated a regular diet, voided without difficulty, ambulated well and had her pain well controlled with oral pain medications. She was discharged home on postoperative day #2 for routine followup in the office.
== END 2020-04-29 14:30 | disposition home or self-care (01) | DRG 768 ==
LOC: OPB 05:23 → 4S1 05:27 → 4S2 20:13

== ENCOUNTER 2021-12-10 03:18 | Inpatient (IN) ==
[2021-12-10] MEDS ORDERED: OXYTOCIN 30 UNITS/500 ML BAG IV PRN (03:35)
[2021-12-10 04:00] LABS: Hematocrit (blood only) 38.5 % (37-47); Hemoglobin 13.7 g/dL (12.0-16.0); Mean Platelet Volume 11.8 fL (7.4-10.4); Platelet Count 200 K/uL (130-400); RDW Coefficient of Variation 12.9 % (11.5-14.5); RDW Standard Deviation 42.2 fL (36.4-46.3); Red Blood Count 4.28 M/uL (4.2-5.4); White Blood Count 13.32 K/uL (4.8-10.8)
[2021-12-10 04:05] LABS: Mean Corpuscular Hgb Conc 35.6 g/dL (32-36)
[2021-12-10] MEDS: LACTATED RINGER'S 1,000 ML IV PRN ×2 (04:10→08:29)
[2021-12-10] MEDS ORDERED: SODIUM CHLORIDE 0.9% INJ 10 ML VIAL ONE (04:16)
[2021-12-10] MEDS ORDERED: BUPIVACAINE 0.25% 30 ML VIAL ONE (04:16)
[2021-12-10] MEDS ORDERED: ePHEDrine sulfate 50 MG/ML AMP ONE (04:16)
[2021-12-10] MEDS ORDERED: fentaNYL citrate 100 MCG/2 ML VIAL ONE (04:16)
[2021-12-10] MEDS ORDERED: fentaNYL 2MCG/ML ROPIVACAINE 1.25MG/ML 100 ML BAG EPI ONE (04:17)
--- NOTE | 2021-12-10 04:30 | Anesthesiology Consultation ---
Date of Service December 10, 2021 Assessment & Plan Chart Review Chart Review: Acceptable Risk for Labor Epidural Consults Requested none ASA ASA2 Proposed Anesthesia Anesthesia Type: Labor Epidural Risk / Benefits Reviewed With: PT / POA / Parent / Guardian, Accepts Plan and Informed Consent Obtained History Allergies Allergy/AdvReac Type Severity Reaction Status Date / Time No Known Allergies Allergy Verified 12/10/21 04:07 Medications Home Medications Medication Instructions Recorded Confirmed Last Taken prenat.vits,toñito,ejc-[id number] 1 tab PO DAILY 09/13/19 12/10/21 04/26/20 Past Medical History Medical History Supervision of normal intrauterine in primigravida Varicella Exercise / Class Metabolic Activity II 4-5 Yardwork/Stairs/Walk up hill Past Family History Family History Mother Diabetes Denies family history of Ovarian cancer Breast cancer Colorectal cancer Past Surgical History Surgical History No pertinent past surgical history Past Anesthesia History No Hx of Anesthesia Complications and No Family Hx of Anesthesia Complications History of PONV No Hx of PONV and No Hx of Motion Sickness Social History Smoking Status: Never smoker Hx Alcohol Use: No Hx Substance Use: No Physical Exam Vital Signs Last Vital Signs Temp 98.1 F 12/10/21 03:51 Pulse 106 H 12/10/21 04:25 Resp 20 12/10/21 03:51 BP 123/88 12/10/21 03:37 Pulse Ox 97 12/10/21 04:25 ENMT Mouth: no dentition abnormality Thyromental Distance: > or= 3.5 Finger Breadths Mallampati Class: II Neck normal visual inspection Respiratory normal respiratory effort Auscultation: lungs clear to auscultation bilaterally Cardiovascular Rate/Rhythm: regular rate and regular rhythm Testing Laboratory Results 12/10/21 03:49
[2021-12-10] MEDS ORDERED: NALOXONE HCL 0.4 MG/1 ML VIAL/CARP IV PRN (04:54)
[2021-12-10] MEDS ORDERED: diphenhydrAMINE 50 MG/ML VIAL IV PRN (04:54)
[2021-12-10] MEDS ORDERED: NALOXONE HCL 1 MG in SODIUM CHLORIDE 0.9% 1000ML 1,000 ML IV PRN (04:54)
[2021-12-10] MEDS ORDERED: ONDANSETRON INJ 2 MG/ML 2 ML VIAL IV PRN (04:54)
[2021-12-10] MEDS ORDERED: fentaNYL 2MCG/ML ROPIVACAINE 1.25MG/ML 100 ML BAG EPI PRN (04:54)
[2021-12-10] MEDS ORDERED: NALBUPHINE HCL INJ 10 MG/ML AMP IV PRN (04:54)
[2021-12-10] MEDS ORDERED: ePHEDrine sulfate 50 MG/ML AMP IV PRN (04:54)
[2021-12-10] MEDS ORDERED: NURSING L&D Epidural Breakthrough Pain Update ONE (06:04)
--- NOTE | 2021-12-10 08:41 | History & Physical Report ---
Date of Service December 10, 2021 Assessment & Plan (1) Active labor at term: Plan: will begin 2nd stage. ts categ 2 with variables. Admission and Anticipated Discharge Date Admission Date: December 10, 2021 History of Present Illness Chief Complaint: labor Primary Care Provider: [facility] PCP 31yo at 40wks mookie presents to L&D in active labor. She noted contractions through night, breathing with them and advised to come to L&D. On arrival was 5cm and wanted epidural. Received epidural and now comfortable. PNC uncomplicated. PNL rh pos, ri, gbs neg OBH: vavd x 1 GYNH: nl paps Allergies Allergy/AdvReac Type Severity Reaction Status Date / Time No Known Allergies Allergy Verified 12/10/21 04:07 Home Medications Medication Instructions Recorded Confirmed Type prenat.vits,toñito,bcg-psag-[id number] 1 tab PO DAILY 09/13/19 12/10/21 History Patient History Medical History Supervision of normal intrauterine in primigravida Varicella Surgical History No pertinent past surgical history Family History Mother Diabetes Denies family history of Ovarian cancer Breast cancer Colorectal cancer Social History (Updated 04/29/21 @ 11:01 by Emily Britton) Smoking Status: Never smoker Second Hand Exposure: No; Hx Alcohol Use: No Hx Substance Use: No Preferred Language: [place]ian Communication Ability: Effective Assembler Ping Pong Table Required: No Beliefs That Will Affect Care: None marital status: marital status details: Lindsay Dao (29) [phone] Current Living Situation: Spouse and Family Current Living Situation Comment: lives with spouse, son, no pets current occupational status: unemployed current occupation: homemaker Other Information That Helps Us Care for You: No Feels Safe at Home: Yes Safety Concerns: Feels Safe At This Time Assistive Devices: None Review of Systems as per Subjective / HPI Physical Exam Constitutional: WD/WN, vitals as above Respiratory: normal respiratory effort, lungs clear to auscultation Cardiovascular: Rate/Rhythm: regular rate and regular rhythm Gastrointestinal (Abdomen): soft gravid nt Musculoskeletal: no edema nontender calves Neurologic: grossly normal Psychiatric: A+Ox3, euthymic affect Genitourinary: Manual OB Exam: + cervical dilation 10 cm, + cervical effacement 100%, + station + 2 and + amniotic fluid (arom with exam) clear OB Exam Monitor Tracing: + external FHT monitor used, + external uterine monitor used (q2), + category I and + normal FHT variability Results & Data ([facility]) Vital Signs (Past 12 Hours) Vital Signs Temp Pulse Resp BP Pulse Ox 12/10/21 08:35 94 H 99 12/10/21 08:30 98.8 F 97 H 20 97 12/10/21 08:28 105 H 153/62 H 12/10/21 08:25 94 H 99 12/10/21 08:20 91 H 96 12/10/21 08:15 82 96 12/10/21 08:13 80 134/70 12/10/21 08:10 84 95 12/10/21 08:05 77 95 12/10/21 08:00 85 20 95 12/10/21 07:57 83 132/73 12/10/21 07:55 83 96 12/10/21 07:50 81 95 12/10/21 07:45 86 96 12/10/21 07:42 88 132/72 12/10/21 07:40 91 H 95 12/10/21 07:35 88 97 12/10/21 07:30 93 H 20 96 12/10/21 07:26 89 125/71 12/10/21 07:25 83 96 12/10/21 07:20 90 97 12/10/21 07:15 89 97 12/10/21 07:13 92 H 130/81 12/10/21 07:10 85 98 12/10/21 07:05 97 H 98 12/10/21 07:00 99.0 F 99 H 16 97 12/10/21 06:56 71 105/59 L 12/10/21 06:55 78 96 12/10/21 06:50 77 94 12/10/21 06:45 75 95 12/10/21 06:43 72 101/55 L 12/10/21 06:40 74 95 12/10/21 06:35 75 96 12/10/21 06:30 82 16 97 12/10/21 06:27 77 101/56 L 12/10/21 06:25 78 96 12/10/21 06:20 82 96 12/10/21 06:15 93 H 97 12/10/21 06:13 89 117/78 12/10/21 06:10 80 95 12/10/21 06:05 84 95 12/10/21 06:00 87 16 97 12/10/21 05:56 85 114/70 12/10/21 05:55 83 98 12/10/21 05:51 81 107/64 12/10/21 05:50 80 96 12/10/21 05:46 86 118/72 12/10/21 05:45 81 97 12/10/21 05:41 80 116/73 12/10/21 05:40 82 98 12/10/21 05:36 81 112/72 12/10/21 05:35 78 97 12/10/21 05:31 76 111/72 12/10/21 05:30 80 18 97 12/10/21 05:26 82 116/71 12/10/21 05:25 82 97 12/10/21 05:21 81 117/74 12/10/21 05:20 82 97 12/10/21 05:16 84 116/74 12/10/21 05:15 89 97 12/10/21 05:10 92 H 97 12/10/21 05:07 90 147/87 H 12/10/21 05:05 98 H 172/81 H 93 12/10/21 05:03 91 H 87 L 12/10/21 05:02 81 128/78 12/10/21 05:00 91 H 130/80 98 12/10/21 04:58 85 126/80 12/10/21 04:57 90 88 L 12/10/21 04:56 82 123/82 12/10/21 04:55 90 100 12/10/21 04:54 90 137/83 12/10/21 04:52 93 H 142/82 H 12/10/21 04:50 92 H 137/79 99 12/10/21 04:48 86 136/76 12/10/21 04:46 90 136/72 12/10/21 04:45 94 H 99 12/10/21 04:40 94 H 94 12/10/21 04:38 91 H 92 12/10/21 04:35 96 H 96 12/10/21 04:30 101 H 92 12/10/21 04:25 106 H 97 12/10/21 04:08 98.1 F 102 H 20 123/88 12/10/21 03:51 98.1 F 20 12/10/21 03:37 102 H 123/88 Code Status & VTE Plan VTE Prophylaxis Plan VTE Prophylaxis will be ordered: No Coding Level of Care Code None Diagnoses Active labor at term
--- NOTE | 2021-12-10 08:58 | Delivery Summary ---
Vaginal Delivery Summary Date of Service December 10, 2021 Vaginal Delivery Summary The patient dilated to complete and pushed to deliver a viable male Apgars 8 and 9 via over intact perineum. Mouth and nose bulb suctioned at perineum. Shoulders and body delivered with ease. was vigorous and crying at . Cord clamped at 30 seconds of life and infant to maternal abdomen where the cord was then doubly clamped and cut. Placenta delivered spontaneously and intact, three-vessel cord. Hemostasis achieved with dilute pitocin and uterine massage and drainage of the bladder for approximately 150 cc under sterile conditions. Cervix and sulci intact. EBL 300 cc. Mother and baby stable in recovery. [facility] Vaginal Delivery Charge Delivery Type Details:
[2021-12-10] MEDS ORDERED: OXYTOCIN 20 UNITS in LACTATED RINGER'S 1,000 ML IV SCH (09:00)
[2021-12-10] MEDS ORDERED: IBUPROFEN 600 MG TAB PO PRN (09:09)
[2021-12-10] MEDS ORDERED: BENZOCAINE 20% AER SPR 82.5 GM CAN EXT PRN (09:09)
[2021-12-10] MEDS ORDERED: NON-FORMULARY MEDICATION (Prenat.Vits,Cal,Min-Iron-Folic tablet) PO SCH (09:09)
[2021-12-10] MEDS ORDERED: HYDROCORTISONE ACETATE 25 MG SUPP PR PRN (09:09)
[2021-12-10] MEDS ORDERED: DIPHTHERIA/TETANUS/PERTUSSIS 0.5 ML SYR/VIAL IM ONE (09:09)
[2021-12-10] MEDS ORDERED: ACETAMINOPHEN 325 MG TAB PO PRN (09:09)
[2021-12-10] MEDS ORDERED: oxyCODONE/ACETAMINOPHEN 5mg/325mg TAB PO PRN (09:09)
--- NOTE | 2021-12-10 09:29 | Anesthesia Procedure Note ---
Date of Service December 10, 2021 Anesthesia Post Epidural Note Vital Signs Vital Signs: Temp Pulse Resp BP Pulse Ox 37.1 C 90 20 130/75 97 12/10/21 08:30 12/10/21 09:22 12/10/21 09:22 12/10/21 09:22 12/10/21 08:50 Pain Intensity Abdomen: Pain Intensity: 0 Notes Mental Status: alert / awake / arousable and participated in evaluation Nausea / Vomiting: adequately controlled Pain: adequately controlled Airway Patency, RR, SpO2: stable & adequate BP & HR: stable & adequate Hydration State: stable & adequate Neuraxial Anesthesia: was administered and sensory block is resolving Anesthetic Complications: no major complications apparent Epidural: Removed without complications and With tip intact
[2021-12-10] MEDS: DOCUSATE SODIUM 100 MG CAP PO SCH (20:48)
[2021-12-11] MEDS ORDERED: PRENATAL VITAMIN 1 TAB PO SCH (08:00)
--- NOTE | 2021-12-11 08:11 | Obstetrical Progress Note ---
Date of Service December 11, 2021 Assessment & Plan (1) Encounter for care and examination after delivery: Plan: 31yo PPD 1 s/p at 40 weeks -Continue routine care -Vitals reviewed- HDS, afebrile -GBS neg -Encourage ambulation, regular diet -Pain control with ibuprofen, acetaminophen PRN -Encourage -Hgb 13.7, repeat this morning pending -f/u in 6 weeks with OB after discharge Admission and Anticipated Discharge Date Admission Date: December 10, 2021 Supervising Physician Co-Signing Physician Notes Resident Physician Supervision Note: I interviewed and examined the patient. Discussed with Dr. Zaman and agree with findings and plan as documented in the note. Any exceptions or clarifications are listed here: [ ] Documented By: Delores Epps MD, FACOG Subjective Ambulation: yes Voiding: yes Passing Gas: yes BM: no Diet Tolerance: regular, denies N/V Lochia: small Feeding Type: and bottle feeding Current Pain Level(1-10): 0 Review of Systems Review of Systems: Denies fevers/chills. Denies dyspnea, cough. Denies chest pain. Denies dysuria. Denies headache. Mild back pain. Physical Exam Physical Exam: General: Alert, oriented, no acute distress Cardiac: Regular rate and rhythm, normal S1, S2. No murmurs appreciated. Respiratory: Clear to auscultation b/l with good air flow entry, symmetric chest rise and fall. No wheezes or crackles. No increased work of breathing or accessory muscle use Abdomen: Soft, nontender, nondistended. Fundus firm and palpable at 2 cm below umbilicus. No guarding or rebound. Skin: No rashes or lesions Extremities: Warm, dry, well-perfused with capillary refill <2s b/l. No lower extremity edema, erythema or swelling. Negative Liz's sign b/l. Results & Data ([facility]) Vital Signs (Past 12 Hours) Vital Signs Temp Pulse Resp BP BP Pulse Ox 12/11/21 03:30 36.6 C 95 H 20 107/70 97 12/10/21 23:00 36.9 C 99 H 18 107/69 97 Resident Activity Tracking Resident Involvement: Resident Care Provided Care Provided: OB Delivery
[2021-12-11 08:48] LABS: Hematocrit (blood only) 38.7 % (37-47); Hemoglobin 13.2 g/dL (12.0-16.0)
[2021-12-11] MEDS: DOCUSATE SODIUM 100 MG CAP PO SCH (09:04)
== END 2021-12-11 17:15 | disposition home or self-care (01) | DRG 807 ==
LOC: OPB 03:18 → 4S1 03:23 → 4E2 11:15